=== PATIENT | male | born 1990 ===

== ENCOUNTER 2023-01-21 08:49 | Outpatient (AMB) | payer MEDICAID, SELFPAY ==
--- NOTE | 2023-01-21 08:50 | MHC.OFFVIS ---
Intake Intake Visit Reasons: Circumcision consult Allergies No Known Allergies Allergy (Verified 01/21/23 08:53) HPI HPI Comments History of Present Illness Details Waylon is a 32-year-old male who presents today to the office to establish as a new patient for an evaluation of circumcision consult. 01/21/2023? He presents today for an evaluation of circumcision consult. He has seen Dr. Lucio, [employer] for whitish discharge of foreskin x 2 weeks, and associated with itching at that time.He was referred to the urology office for circumcision. Patient has been using Nystatin cream with benefit. He states that foreskin can be retracted without any difficulty at this time. He has not been taking any other medications. He denies any history of STDs. He is not sexually active at this time. Examination: foreskin can be retracted without any difficulty, no active inflammation noted. Evaluation today?UA? leukocytes: negative; blood: negative. Plan: Circumcision: Patient has recently started a new job and wants to wait for 90 days. Will get consent closer to the date of procedure. He was instructed that if he get recurrent symptoms of balanitis, he can use OTC anti-fungal cream PRN. Review of Systems Const All systems reviewed & are unremarkable except as noted in HPI and below Reports no additional complaints Eyes Reports no additional complaints ENT Reports no additional complaints Card Denies dyspnea Resp Denies cough and Denies dyspnea GI Reports no additional complaints Musc Reports no additional complaints Skin/Breast Denies rash and Denies unusual bruising Neuro Reports no additional complaints Psych Reports no additional complaints Endo Reports no additional complaints Jovanny/Lymph Reports no additional complaints Aller/Immun Reports no additional complaints Physical Exam Const General: healthy appearing, no acute distress and well developed Nutritional Appearance: overweight Orientation/consciousness: patient oriented x3 HEENT Head: Yes normocephalic and Yes atraumatic Eyes Conjunctivae: conjunctivae normal Neck Neck: Yes normal visual inspection Chest Chest palpation & inspection: normal inspection of the chest Resp Effort & Inspection: normal respiratory effort Cardio Rate: regular rate GI Inspection: Yes normal to inspection Palpation (GI): Soft to palpation Penis: normal penis and uncircumcised Scrotum: scrotum normal Skin General skin exam: no rashes or lesions noted Neuro General: patient oriented x3 Extrem General: No pedal edema Psych Appearance: grossly normal Affect: normal affect Results AMB Urinalysis, Automated UA Leukoctes Andie/uL Last Edit by Lluvia Lau CMA on 01/21/23 09:03 UA Nitrite Last Edit by Lluvia Lau CMA on 01/21/23 09:03 UA Urobilinogen 0.2 mg/dL Last Edit by Lluvia Lau, VALERIY on 01/21/23 09:03 UA Protein mg/dL Last Edit by Lluvia Lau, VALERIY on 01/21/23 09:03 UA pH 5.5 Last Edit by Lluvia Lau, VALERIY on 01/21/23 09:03 UA Blood Miguel/uL Last Edit by Lluvia Lau, VALERIY on 01/21/23 09:03 UA Specific [place] 1.025 Last Edit by Lluvia Lau, VALERIY on 01/21/23 09:03 UA Ketone Last Edit by Lluvia Lau, VALERIY on 01/21/23 09:03 UA Bilirubin mg/dL Last Edit by Lluvia Lau, VALERIY on 01/21/23 09:03 UA Glucose mg/dL Last Edit by Lluvia Lau CMA on 01/21/23 09:03 Results Reviewed Results Reviewed: Laboratory Last Values Urine pH (Auto) 5.5 01/21/23 08:56 Specific [place] (Auto) 1.025 01/21/23 08:56 Urine Urobilinogen (Auto) 0.2 mg/dL 01/21/23 08:56 Assessment & Plan Assessment & Plan (1) Balanitis: Code(s): N48.1 - Balanitis (2) Redundant foreskin: Code(s): N47.8 - Other disorders of prepuce Plan Circumcision: Patient has recently started a new job and wants to wait for 90 days. Will get consent closer to the date of procedure. He was instructed that if he get recurrent symptoms of balanitis, he can use OTC antifungal cream PRN. Orders: Orders AMB Urinalysis Automated Today Z13.9 - Encounter for screening, unspecified Patient Instructions: The patient had an opportunity to ask questions regarding treatment plan. All questions were answered. Imaging, Laboratory studies and physical exam results were discussed and reviewed in detail. No major barriers to understanding were identified. The patient expressed understanding and agreement with the above treatment plan.? ? ? The patient is aware they should contact our office by phone for worsening of their current condition or the appearance of new symptoms. Compliance is encouraged with any medications and followup testing that is ordered.? ? ? It is a privilege to be allowed the opportunity to participate in the urologic care of your patient. If you have any questions or concerns regarding treatment for the above conditions please do not hesitate to contact me. The office telephone contact is [phone].? ? ? This note is constructed in part using voice recognition software. While every effort has been made to ensure accuracy gang bore operator errors may have been included.? ? ? Yours sincerely,? ? ? Michelle Ruiz MD? ? Coding Level of Care Code New Pt Level 3 (71248) Diagnoses Balanitis N48.1 Redundant foreskin N47.8
== END 2023-01-21 09:28 | disposition home or self-care (01) ==
PROVIDERS: PCP Nurse Practitioner Family; Visit Provider Urology
DX: N48.1 Balanitis (principal); N47.8 Other disorders of prepuce; Z13.9 Encounter for screening, unspecified
CPT/HCPCS: 99203

== ENCOUNTER → 2023-01-21 08:49 | Outpatient (BNVA) | payer MEDICAID, SELFPAY | PROVIDERS: PCP Nurse Practitioner Family; Visit Provider Urology | DX: N48.1 Balanitis (principal); N47.8 Other disorders of prepuce | CPT/HCPCS: 81003; 99202 ==